=== PATIENT | female | born 1965 | race Two or more races ===

== ENCOUNTER 2024-04-16 11:12 | Emergency (ER) | payer OTHER ==
[~2024-04-16] VITALS: Ht 170.2 cm; Wt 104.3 kg
[2024-04-16] MEDS ORDERED: ZOLOFT50 MG PO (11:17)
[2024-04-16] MEDS ORDERED: HORIZANT300 MG PO (11:18)
[2024-04-16] MEDS ORDERED: QUETIAPINE FUMA50 M1 PO (11:18)
[2024-04-16] MEDS ORDERED: SYNTHROID50 MCG PO (11:18)
[2024-04-16] MEDS ORDERED: SPIRONOLACTONE25 MG PO (11:19)
[2024-04-16] MEDS ORDERED: VALSARTAN320 MG PO (11:19)
[2024-04-16] MEDS ORDERED: SEROQUEL25 MG PO (11:19)
[2024-04-16] MEDS ORDERED: CLONAZEPAM0.25 MG PO (11:20)
[2024-04-16] MEDS ORDERED: LIPITOR40 MG PO (11:21)
[2024-04-16] MEDS ORDERED: TOPROL XL50 M1 (11:21)
[2024-04-16] MEDS ORDERED: PROTONIX20 MG PO (11:21)
[2024-04-16] MEDS ORDERED: PEPCID AC20 MG PO (11:22)
[2024-04-16] MEDS ORDERED: SERTRALINE HCL50 MG PO (11:22)
[2024-04-16] MEDS ORDERED: DIALYVITE TABL1 EACH (11:23)
[2024-04-16] MEDS ORDERED: UCERIS9 MG (11:27)
[2024-04-16] MEDS ORDERED: SPIRIVA RESPIMAT4 G1 IH (11:27)
[2024-04-16] MEDS ORDERED: ALLERGY RELIE15.8 ML (11:27)
[2024-04-16] MEDS ORDERED: MEPERIDINE HCL/PF 25 MG/ML VIAL IM ONE (12:45)
[2024-04-16] MEDS ORDERED: PROMETHAZINE HCL 25 MG/ML AMPUL IM ONE (12:45)
[2024-04-16] MEDS ORDERED: PROMETHAZINE HCL 25 MG/ML AMPUL ONE (12:49)
[2024-04-16 13:14] LABS: HEMATOCRIT 39.7 % (36.0-45.00); HEMOGLOBIN 13.7 g/dL (12.0-15.00); MEAN CELL VOLUME 84.2 fL (80.00-100.00); MEAN CORPUSCULAR HGB CONC 34.4 g/dl (32.0-36.0); PLATELET COUNT 269 K/uL (150-450); RED BLOOD COUNT 4.71 M/uL (4.00-6.00); RED CELL DISTRIBUTION WIDTH 13.4 % (11.5-14.5)
[2024-04-16 13:45] LABS: INR 1.01; PARTIAL THROMBOPLASTIN TIME 30.2 SECONDS (22.0-34.0)
[2024-04-16 14:08] LABS: ALBUMIN 3.7 gm/dL (3.4-5.0); BILIRUBIN TOTAL 0.55 mg/dL (0.3-1.2); CALCIUM 9.4 mg/dL (8.5-10.1); CREATININE SERUM 0.87 mg/dL (0.55-1.02); GFR 67.11; GLOBULINA 3.1 G/DL (2.4-3.5); POTASSIUM 4.2 mEq/L (3.5-5.1); TOTAL PROTEIN 6.8 gm/dL (6.4-8.2)
[2024-04-16] MEDS ORDERED: KETOROLAC TROMETHAMINE 60 MG VIAL IM ONE ×2 (17:45→18:01)
[2024-04-16] MEDS ORDERED: ORPHENADRINE CITRATE 30 MG/ML AMPUL IM ONE (17:45)
[2024-04-16] MEDS ORDERED: ORPHENADRINE CITRATE 30 MG/ML AMPUL ONE (18:01)
[2024-04-16] MEDS ORDERED: KETO10TA2 PO (19:01)
[2024-04-16] MEDS ORDERED: HEMORRHOIDAL S1 EAC2 RC (19:01)
== END 2024-04-16 19:11 | disposition home or self-care (01) ==
LOC: ER 11:13
PROVIDERS: Emergency Medicine
DX: K62.89 Other specified diseases of anus and rectum (principal)
CPT/HCPCS: 36415; 74177; Q9965